=== PATIENT | male | born 1950 | race Caucasian/White ===

== ENCOUNTER 2018-04-04 11:55 | Emergency (ER) | payer OTHER ==
[~2018-04-04] VITALS: Ht 165.1 cm; Wt 74.4 kg
[2018-04-04] MEDS ORDERED: AMLODIPINE BESYL5 MG (12:10)
== END 2018-04-04 16:28 | disposition home or self-care (01) ==
LOC: ER 11:55
DX: K29.60 Other gastritis without bleeding (principal)

== ENCOUNTER 2018-04-09 07:15 | Emergency (ER) | payer OTHER ==
[~2018-04-09] VITALS: Ht 165.1 cm; Wt 74.4 kg
[~2018-04-09 07:15] MED LIST: AMLODIPINE BESYL5 MG
== END 2018-04-09 10:35 | disposition home or self-care (01) ==
LOC: ER 07:15
DX: R14.3 Flatulence (principal); R10.84 Generalized abdominal pain